=== PATIENT | male | born 1945 | race Caucasian/White ===

== ENCOUNTER 2020-05-29 10:31 | Inpatient (IN) | payer OTHER, SELFPAY ==
[~2020-05-29] VITALS: Ht 190.5 cm; Wt 126.1 kg
--- NOTE | 2020-05-29 10:31 | NUR ---
Patient MARY ALICEDb FAIZAN, triaged by RN. Waiting for an available bed.
[2020-05-29 11:11] VITALS: BP 107/47
--- NOTE | 2020-05-29 12:03 | NUR ---
Patient transferred to [facility] for further care.
--- NOTE | 2020-05-29 12:06 | NUR ---
75 y/o male biba als from home c/o vomiting coffee ground emesis x 1 day. Patient denies nausea/pain. Abd soft and non tender to palpation. Skin warm, dry, intact. AOx4 upon arrival. Given 4mg IV push zofran in route. 20G IV placed to right hand by ems. medhx: HTN, DM
--- NOTE | 2020-05-29 12:15 | NUR ---
Dr Solis at [facility] examining patient
[2020-05-29] MEDS ORDERED: NACL 0.9% 1,000 ML IV ONE ×2 (12:20→14:00)
[2020-05-29 12:53] LABS: BASOPHILS # (AUTO) 0.1 K/uL (0.00-0.22); BASOPHILS % (AUTO) 0.5 % (0.0-2.0); EOSINOPHILS # (AUTO) 0.1 K/uL (0-0.4); EOSINOPHILS % (AUTO) 0.6 % (0.0-4.0); HEMATOCRIT 24.8 % (36-52); HEMOGLOBIN 8.1 g/dL (12.0-18.0); LYMPHOCYTES # (AUTO) 1.4 K/uL (2.0-11.5); MEAN CORPUSCULAR HEMOGLOBIN 33 pg (27-31); MEAN CORPUSCULAR HGB CONC 33 g/dL (33-37); MEAN CORPUSCULAR VOLUME 101.4 fL (80-94); MONOCYTES # (AUTO) 1.1 K/uL (0.8-1.0); MONOCYTES % (AUTO) 9.4 % (1.7-9.3); NEUTROPHILS # (AUTO) 8.8 K/uL (1.8-7.7); NEUTROPHILS % (AUTO) 77.5 % (42.2-75.2); PLATELET COUNT (AUTO) 182 K/uL (140-450); RED BLOOD CELL COUNT(AUTO) 2.45 MIL/uL (4.20-6.10); RED CELL DISTRIBUTION WIDTH 15.5 % (11.6-13.7); WHITE BLOOD COUNT (AUTO) 11.3 K/uL (4.8-10.8)
--- NOTE | 2020-05-29 13:00 | NUR ---
Patient taken to CT via wheelchair
--- NOTE | 2020-05-29 13:10 | NUR ---
Covid swabs collected and walked to lab.
[2020-05-29 13:20] LABS: ALBUMIN 2.8 g/dL (3.4-5.0); ANION GAP 14.4 (8-16); ASPARTATE AMINOTRANSFERASE 18 U/L (15-37); CHLORIDE 105 mmol/L (98-107); CREATININE 1.5 mg/dL (0.6-1.3); POTASSIUM 4.4 mmol/L (3.5-5.1); SODIUM SERUM 140 mmol/L (136-145); TOTAL BILIRUBIN 0.3 mg/dL (0.0-1.0)
[2020-05-29 13:31] LABS: GLUCOSE 419 mg/dL (74-106); UREA NITROGEN, BLOOD 134 mg/dL (7-18)
--- NOTE | 2020-05-29 13:31 | NUR ---
Glucose 419, Calcium 7.9, BUN 134, Creatinine 1.5--critical values received from lab. Dr Solis made aware
--- NOTE | 2020-05-29 13:34 | NUR ---
Patient transferred to bed 5 for further care. RN evaluating patient at bedside.
--- NOTE | 2020-05-29 13:40 | NUR ---
PT PLACED ON 2L NC FOR 88% ON RA, DENIES SOB, LIGHTHEADEDNESS, OR CP
--- NOTE | 2020-05-29 13:52 | NUR ---
MAXIMILIANOD MADE CARLOS OF HYPOTENSION TRENDS, 76/37, 74/37. AWARE BOLUS IS STILL INFUSING. MADE AWARE THAT PTS ACCU CHECK IS 418
[2020-05-29] MEDS ORDERED: INSULIN REGULAR, HUMAN 100 UNIT/ML VIAL SUBQ ONE (14:00)
--- NOTE | 2020-05-29 15:00 | NUR ---
PT ASLEEP IN BED. EQUAL CHEST RISE AND FALL. COMPUTER FORENSICS TECHNICIAN IN PLACE. BED LOCKED AND IN LOWEST POSITION. SIDE RAILS X2.
[2020-05-29] MEDS: NACL 0.9% 1,000 ML IV SCH (15:45)
[2020-05-29] MEDS ORDERED: NIAC500T6 PO (16:04)
[2020-05-29] MEDS ORDERED: CARV12.5 PO (16:05)
[2020-05-29] MEDS ORDERED: FURO-570 PO (16:05)
[2020-05-29] MEDS ORDERED: POTA10TE30 PO (16:06)
[2020-05-29] MEDS ORDERED: ROSU10TA1 PO (16:06)
[2020-05-29] MEDS ORDERED: METF1TAB5 PO (16:07)
[2020-05-29] MEDS ORDERED: GLIP10TE PO (16:08)
[2020-05-29] MEDS ORDERED: LISI30TA6 PO (16:09)
[2020-05-29] MEDS ORDERED: TERA5CAP8 PO (16:09)
[2020-05-29] MEDS ORDERED: AMLO5TAB PO (16:10)
[2020-05-29] MEDS ORDERED: FLUO10CA21 PO (16:10)
[2020-05-29] MEDS ORDERED: FISH100053 PO (16:11)
[2020-05-29] MEDS ORDERED: INSU100S22 SUBQ (16:15)
[2020-05-29] MEDS ORDERED: ALEN70TA74 PO (16:15)
--- NOTE | 2020-05-29 16:56 | NUR ---
called lab to see if blood is ready for transfusion, stated to call back in 30 min
[2020-05-29] MEDS: SUCRALFATE 1 GM TAB PO SCH ×2 (17:22→22:46)
[2020-05-29] MEDS: LANSOPRAZOLE 30 MG CAPDR PO SCH (17:23)
[2020-05-29] MEDS: SENNA 8.6 MG TAB PO SCH (17:23)
--- NOTE | 2020-05-29 17:58 | NUR ---
The patient's , Charley Renee, may be reached via cell phone at [phone].
--- NOTE | 2020-05-29 18:00 | NUR ---
REPORT RECEIVED FROM FLAVIO PEÑA. ASSUMED CARE AT THIS TIME.
[2020-05-29] MEDS ORDERED: OCTREOTIDE ACETATE 1.25 MG in NACL 0.9% 250 ML IV SCH (19:00)
--- NOTE | 2020-05-29 19:15 | NUR ---
REPORT GIVEN TO FLAVIO ARNETT. ALL CARE TRANSFERRED.
--- NOTE | 2020-05-29 19:15 | NUR ---
RECEIVED REPORT FROM FLAVIO SETHI FOR CONTINUATION OF CARE. PT SLEEPING. VISIBLE RISE AND FALL OF CHEST NOTED. PT CONNECTED TO THE COOLER CONVEYOR LOADER. IV FLUIDS RUNNING PER MD ORDERS. BED IS LOCKED AND IN LOWEST POSITION. SIDE RAILSX1. NO VISIBLE DISTRESS NOTED. WILL CONTINUE TO MONITOR.
--- NOTE | 2020-05-29 19:40 | NUR ---
Consent signed per Cecil Renee (the patient) agreeing to administration of blood. Blood has been type and crossmatched. Information on unit of blood checked against patient wristband at bedside by two nurses. All information matches. Patient or responsible constitution party informed of potential complications associated with blood transfusion. Informed of possible transfusion reaction symptoms. Aware of need to notify nurse at once of itching, shortness of breath, flushing, feeling of impending doom, or other symptoms not previously present. Vital signs taken within 5 minutes prior to initiation of transfusion. RN will remain with patient for first 15 minutes of transfusion at which time vital signs will be re-assessed.
--- NOTE | 2020-05-29 21:25 | NUR ---
BLOOD TRANFUSION COMPLETE, PT TOLERATE WELL. PT IS RESTING ON HIS LEFT SIDE. VISIBLE RISE AND FALL OF CHEST NOTED. PT CONNECTED TO THE SIGNAL SYSTEM TESTING MAINTAINER. PT SAO2@98% ON 3L N/C. NO VISIBLE DISTRESS NOTED. PT DENIES PAIN. PT IS AFEBRILE. PT IS WITHIN VIEW OF NURSING STATION. IV FLUIDS RUNNING AT 100ML/HR PER MD ORDERS. WILL CONTINUE TO MONITOR FOR ADVERSE SIDE EFFECTS OF BLOOD TRANSFUSION.
[2020-05-29] MEDS ORDERED: DEXTROSE 50% 50 ML SYR IVP PRN (22:00)
[2020-05-29] MEDS ORDERED: ONDANSETRON 4 MG/2 ML VIAL IM/IVP PRN (22:00)
[2020-05-29] MEDS ORDERED: HYDROcodone/APAP 5/325 MG 1 TAB TAB PO PRN (22:00)
[2020-05-29] MEDS ORDERED: ZOLPIDEM 5 MG TAB PO PRN (22:00)
[2020-05-29] MEDS ORDERED: ACETAMINOPHEN 325 MG TAB PO PRN (22:00)
[2020-05-29] MEDS ORDERED: MAG SULF 2000 MG/WATER PREMIX 50 ML IV PRN (22:00)
[2020-05-29] MEDS ORDERED: MORPHINE SULFATE 2 MG/ML SYR IVP PRN (22:00)
[2020-05-29] MEDS ORDERED: LORazepam 2 MG/ML VIAL IM/IVP PRN (22:00)
[2020-05-29] MEDS ORDERED: POTASSIUM CHLORIDE 10 MEQ TABER PO PRN (22:00)
[2020-05-29] MEDS ORDERED: DOCUSATE SODIUM 100 MG GELCAP PO PRN (22:00)
--- NOTE | 2020-05-29 22:00 | NUR ---
PT PROVIDED WITH URINAL. CLEAN BED SHEETS AND GOWN PROVIDED DUE TO INCONTINENCE. PT TOLERATED SHAKILA CARE WELL.
[2020-05-29] MEDS: LACTULOSE 20 GM/30 ML UDC PO SCH (22:45)
[2020-05-29] MEDS ORDERED: METOCLOPRAMIDE 10 MG/2 ML INJ VIAL IVP ONE (23:00)
[2020-05-29 23:02] LABS: THYROID STIMULATING HORMONE 1.78 uIU/mL (0.34-3.74)
--- NOTE | 2020-05-29 23:30 | NUR ---
PT IS RESTING ON HIS RIGHT SIDE. VISIBLE RISE AND FALL OF CHEST NOTED. PT CONNECTED TO THE DAY HAUL YOUTH SUPERVISOR. PT SAO2@98% ON 3L N/C. NO VISIBLE DISTRESS NOTED. PT IS WITHIN VIEW OF NURSING STATION. IV FLUIDS RUNNING AT 100ML/HR PER MD ORDERS. WILL CONTINUE TO MONITOR FOR ADVERSE SIDE EFFECTS OF BLOOD TRANSFUSION.
--- NOTE | 2020-05-30 00:20 | NUR ---
PT HAS BLACK LIQUID DIARRHEA. NEW BED SHEETS PLACED ON BED. NEW GOWN PROVIDED.
--- NOTE | 2020-05-30 00:30 | NUR ---
PT AMBULATED TO RESTROOM WITH ASSISTANCE.
[2020-05-30] MEDS: NACL 0.9% 1,000 ML IV SCH ×2 (01:16→11:10)
--- NOTE | 2020-05-30 02:00 | NUR ---
PT IS SLEEPING. VISIBLE RISE AND FALL OF CHEST NOTED. PT CONNECTED TO THE CHUTE PULLER. PT SAO2@97% ON 3L N/C. NO VISIBLE DISTRESS NOTED. PT IS WITHIN VIEW OF NURSING STATION. IV FLUIDS RUNNING AT 100ML/HR PER MD ORDERS. WILL CONTINUE TO MONITOR.
--- NOTE | 2020-05-30 03:50 | NUR ---
PT PROVIDED WITH URINAL,
--- NOTE | 2020-05-30 04:03 | NUR ---
URINE SPECIMEN WALKED OVER TO LAB
--- NOTE | 2020-05-30 04:15 | NUR ---
CALLED FLAVIO BATISTA TO GIVE REPORT FOR TRANFER OF CARE AND ADMISSION TO TELEMETRY FLOOR.
--- NOTE | 2020-05-30 04:30 | NUR ---
Patient will be admitted to care of . Admited to TELEMETRY. Will go to room 110B. Belongings list completed. Report to FLAVIO BATISTA.
[2020-05-30 05:17] LABS: APPEARANCE,URINE CLEAR (CLEAR); BILIRUBIN,URINE NEGATIVE (NEGATIVE); BLOOD, URINE NEGATIVE (NEGATIVE); COLOR,URINE YELLOW (YELLOW); LEUKOCYTE ESTERASE ,URINE NEGATIVE (NEGATIVE); NITRITE, URINE NEGATIVE (NEGATIVE); PH,URINE 5.5 (5.0-9.0); UGLUCOSE 2+ (NEGATIVE)
[2020-05-30 05:44] LABS: BARBITURATE, URINE NEGATIVE ng/ml (NEG <=200); BENZODIAZEPINE, URINE NEGATIVE ng/mL (NEG <=200); CANNABINOID, URINE NEGATIVE ng/mL (NEG <=50); COCAINE, URINE NEGATIVE ng/mL (NEG <=300); OPIATE, URINE POSITIVE ng/mL (NEG <=2000); PHENCYCLIDINE SCREEN,URINE NEGATIVE ng/mL (NEG <=25)
[2020-05-30 05:45] VITALS: BP 122/60
--- NOTE | 2020-05-30 05:45 | NUR ---
RECEIVED PT FROM ER , AAOX4 , NID - O2 SAT WNL . IV SITE INTACT AND PATENT. AMBULATES W/ ASSIST TO BED . SAFETY MEASURES IN PLACE . PLAN OF CARE DISCUSSED AND VERBALIZE UNDERSTANDING . CALL LIGHT WITHIN REACH . ON TELE MONITOR . PT . IS FOR EGD - BUT NO CONSENT YET - NPO EXCEPTS MEDS RE EMPHASIZE . WILL CONT. TO MONITOR .
--- NOTE | 2020-05-30 07:02 | NUR ---
PATIENT HAS BEEN SCREENED AND CATEGORIZED MODERATE NUTRITION RISK. PATIENT WILL BE SEEN WITHIN 3-5 DAYS OF ADMISSION. 06/01/20 - 06/03/20 JLOENE HERMOSILLO MBA, RD
[2020-05-30 07:30] VITALS: BP 125/47
--- NOTE | 2020-05-30 07:35 | NUR ---
ENDORSED - PT - STABL E - I ENDORSED TO NURSE BILLY PT HAD LARGE BLACK STOOL WHEN HE WAS IN THE ER . I TOLD TO AM NURSE HE HAD TO FF UP THE LATEST HGB. . PT IS NOT YET SIGN THE CONSENT FOR EGD BEC. HE WANTS FURTHER EXPLAINATION FROM DR. GONZALES BEFORE HE SIGN IT .
--- NOTE | 2020-05-30 07:35 | NUR ---
RECEIVED PATIENT FROM NIGHT NURSE. PATIENT IN BED SLEEPING, CHEST NOTED RISING. RESP EVEN AND UNLABORED ON 3L NC. NO ACUTE S/S DISTRESS. RH 20G INFUSING NS 100ML/HR. HOB ELEVATED. CALL LIGHT WITHIN REACH. WILL CONTINUE TO MONITOR.
[2020-05-30] MEDS: BLOOD GLUCOSE MONITORING 1 DEV DEV FS SCH ×4 (07:52→21:01)
[2020-05-30] MEDS ORDERED: metFORMIN 500 MG TAB PO SCH (08:00)
[2020-05-30] MEDS ORDERED: NIACIN 500 MG TAB PO SCH (09:00)
[2020-05-30] MEDS ORDERED: glipiZIDE ER 5 MG TABER PO SCH (09:00)
[2020-05-30] MEDS: amLODIPine 5 MG TAB PO SCH (09:00)
[2020-05-30] MEDS ORDERED: POTASSIUM CHLORIDE 10 MEQ TABER PO SCH (09:00)
[2020-05-30] MEDS: lisinopriL 10 MG TAB PO SCH (09:00)
[2020-05-30] MEDS ORDERED: FUROSEMIDE 40 MG TAB PO SCH (09:00)
--- NOTE | 2020-05-30 10:05 | NUR ---
PATIENT SITTING BY BEDSIDE AWAKE AND ALERT, ORIENTED X3. RESP EVEN AND UNLABORED ON 3LNC, O2SAT 100%. NO NOTED ACUTE DISTRESS. NO IV ACCESS AT THIS TIME, PATIENT ACCIDENTALLY PULLED ON HIS IV SITE AND BECAME DISLODGED. WILL ATTEMPT TO INSERT ANOTHER IV. PATIENT COOPERATIVE DURING ADMISSION PROCESS. LUNGS CLEAR, SKIN WARM TO TOUCH AND INTACT WITH NOTED DISCOLORATION TO BOTH LOWER ABOVE ANKLES, INTACT SKIN. LISINOPRIL AND NORVASC HELD; BP 125/47 HR 94. PLAN OF CARE DISCUSSED, PATIENT VERBALIZED UNDERSTANDING. CALL LIGHT WITHIN REACH. WILL CONTINUE TO MONITOR.
[2020-05-30] MEDS: LACTULOSE 20 GM/30 ML UDC PO SCH ×3 (10:59→21:05)
[2020-05-30] MEDS: SUCRALFATE 1 GM TAB PO SCH ×4 (10:59→21:04)
[2020-05-30] MEDS: TAMSULOSIN 0.4 MG CAP PO SCH (10:59)
[2020-05-30] MEDS: carvediloL 12.5 MG TAB PO SCH ×2 (11:00→21:05)
[2020-05-30] MEDS: LANSOPRAZOLE 30 MG CAPDR PO SCH ×3 (11:02→16:59)
[2020-05-30] MEDS: FLUoxetine 10 MG CAP PO SCH (11:02)
[2020-05-30] MEDS: SENNA 8.6 MG TAB PO SCH ×3 (11:02→16:59)
[2020-05-30] MEDS ORDERED: fentaNYL citrate 0.05 MG/ML VIAL ONE (11:08)
[2020-05-30] MEDS ORDERED: MIDAZOLAM 5 MG/5 ML VIAL ONE (11:09)
--- NOTE | 2020-05-30 11:14 | NUR ---
SOCIAL WORK NOTE: SW WAS UNABLE TO MEET PATIENT AT BEDSIDE. SW CONTACTED PATIENT'S JEOVANNY SHAH [phone] BUT PHONE NUMBER WAS DISCONNECTED. SW CONTACTED RN BUT NO OTHER EMERGENCY CONTACTS WERE AVAILABLE. SW WILL FOLLOW UP TO COMPLETE ASSESSMENT.
--- NOTE | 2020-05-30 11:31 | NUR ---
PATIENT WENT TO OR FOR EGD. PATIENT LEFT IN STABLE CONDITION.
[2020-05-30 12:00] VITALS: BP 131/59
--- NOTE | 2020-05-30 12:45 | NUR ---
PATIENT CAME BACK FROM EGD, IN STABLE CONDITION. PATIENT DROWSY BUT ALERT. RESP EVEN AND UNLABORED ON 3LNC. NEW IV ACCESS INSERTED BY OR NURSE TO RW 22G. NO NOTED DISTRESS AT THIS TIME. VITALS ARE WNL. PATIENT ABLE TO MAKE NEEDS KNOWN. CALL LIGHT WITHIN REACH. WILL CONTINUE TO MONITOR.
[2020-05-30] MEDS ORDERED: fentaNYL citrate 0.05 MG/ML VIAL IVP ONE (13:15)
[2020-05-30] MEDS ORDERED: MIDAZOLAM 2 MG/2 ML VIAL IVP ONE (13:15)
[2020-05-30] MEDS: INSULIN LISPRO SLIDING SCALE 100 UNITS/ML VIAL SUBQ PRN ×3 (13:22→21:02)
--- NOTE | 2020-05-30 14:24 | NUR ---
PATIENT IN BED SLEEPING, CHEST NOTED RISING. NO ACUTE S/S DISTRESS AT THIS TIME. CALL LIGHT WITHIN REACH. WILL CONTINUE TO MONITOR.
[2020-05-30 14:33] LABS: BASOPHILS % (AUTO) 0.3 % (0.0-2.0); EOSINOPHILS # (AUTO) 0.1 K/uL (0-0.4); EOSINOPHILS % (AUTO) 1.1 % (0.0-4.0); LYMPHOCYTES # (AUTO) 0.7 K/uL (2.0-11.5); LYMPHOCYTES % (AUTO) 9.3 % (20.5-51.1); MEAN CORPUSCULAR HEMOGLOBIN 34 pg (27-31); MEAN CORPUSCULAR HGB CONC 33 g/dL (33-37); MEAN CORPUSCULAR VOLUME 100.1 fL (80-94); MONOCYTES # (AUTO) 0.8 K/uL (0.8-1.0); MONOCYTES % (AUTO) 10.2 % (1.7-9.3); NEUTROPHILS # (AUTO) 5.9 K/uL (1.8-7.7); NEUTROPHILS % (AUTO) 79.1 % (42.2-75.2); PLATELET COUNT (AUTO) 147 K/uL (140-450); RED BLOOD CELL COUNT(AUTO) 1.86 MIL/uL (4.20-6.10); RED CELL DISTRIBUTION WIDTH 16.8 % (11.6-13.7); WHITE BLOOD COUNT (AUTO) 7.5 K/uL (4.8-10.8)
[2020-05-30 14:38] LABS: HEMATOCRIT 18.7 % (36-52); HEMOGLOBIN 6.2 g/dL (12.0-18.0)
[2020-05-30 15:06] LABS: CARBON DIOXIDE 25.9 mmol/L (21-32); CHLORIDE 112 mmol/L (98-107); CREATININE 1.5 mg/dL (0.6-1.3); POTASSIUM 3.9 mmol/L (3.5-5.1); SODIUM SERUM 145 mmol/L (136-145)
[2020-05-30 15:08] LABS: CHOL/HDL RATIO 4.1 (1-4.5); MAGNESIUM 3.1 mg/dL (1.8-2.4); PHOSPHORUS 3.9 mg/dL (2.5-4.9)
[2020-05-30 15:12] LABS: GLUCOSE 463 mg/dL (74-106); UREA NITROGEN, BLOOD 109 mg/dL (7-18)
[2020-05-30 16:00] VITALS: BP 140/49
--- NOTE | 2020-05-30 17:38 | NUR ---
BLOOD SUGAR 383. INSULIN COVERAGE PER SLIDING SCALE. PATIENT ASSISTED FOR PERSONAL CARE. PATIENT TOLERATED WELL. RESP EVEN AND UNLABORED ON 3L NC. NO ACUTE S/S DISTRESS. IV TO RIGHT HAND INFILTRATED. NEW IV TO LEFT HAND 22 G USING ASEPTIC TECHNIQUE. CALL LIGHT WITHIN REACH. WILL CONTINUE TO MONITOR.
--- NOTE | 2020-05-30 19:16 | NUR ---
BLOOD TRANSFUSION STARTED. PATIENT IN BED AWAKE AND ALERT. NO NOTED ACUTE S/S DISTRESS. VITALS WNL. CALL LIGHT WITHIN REACH. WILL CONTINUE TO MONITOR.
--- NOTE | 2020-05-30 19:30 | NUR ---
BLOOD TRANSFUSION IN PROGRESS. ENDORSED PATIENT TO NIGHT NURSE. PATIENT IN STABLE CONDITION.
--- NOTE | 2020-05-30 19:31 | NUR ---
RECEIVED BEDSIDE ENDORSEMENT FROM AM SHIFT RN. AOX4, NO SOB, ON 3 L NC, NO DISTRESS, ISO PRECAUTION IN PLACE, SAFETY MEASURES IN PLACE, PLAN OF CARE DISCUSSED, CALL LIGHT WITHIN REACH.
[2020-05-30 20:00] VITALS: BP 133/86
[2020-05-30] MEDS: GLIMEPIRIDE 2 MG TAB PO SCH (21:04)
[2020-05-30] MEDS: SIMVASTATIN 10 MG TAB PO SCH (21:06)
--- NOTE | 2020-05-30 22:00 | NUR ---
BLOOD TRANSFUSION FINISHED, VITAL SIGNS MONITORED, DURING THE TRANSFUSION, NO A/R NOTED, NO S/E NOTED, PT STABLE, WILL CONTINUE TO MONITOR. CALL LIGHT WITHIN REACH.
[2020-05-30] MEDS ORDERED: INSULIN LANTUS 100 UNITS/ML 10 ML VIAL SUBQ SCH (22:14)
[2020-05-31] VITALS: BP 146/62
[2020-05-31] MEDS: NACL 0.9% 1,000 ML IV SCH ×2 (03:00→15:40)
[2020-05-31 04:00] VITALS: BP 139/60
[2020-05-31] MEDS: LANSOPRAZOLE 30 MG CAPDR PO SCH ×2 (06:46→16:30)
[2020-05-31] MEDS: BLOOD GLUCOSE MONITORING 1 DEV DEV FS SCH ×3 (06:50→16:30)
[2020-05-31] MEDS: INSULIN LISPRO SLIDING SCALE 100 UNITS/ML VIAL SUBQ PRN ×3 (06:51→18:39)
--- NOTE | 2020-05-31 06:56 | NUR ---
HOB ELEVATED, DUE MEDS GIVEN ORDERED, TOLERATED WELL, KEPT COMFORTABLE, CALL LIGHT WITHIN REACH, NO SOB.
--- NOTE | 2020-05-31 07:24 | NUR ---
PT STABLE, NO ACUTE CHANGES THE WHOLE SHIFT, ENDORSED TO AM SHIFT RN.
--- NOTE | 2020-05-31 07:25 | NUR ---
REC'D REPORT FROM VENEER SORTER NURSE, 3LNC, IV ACCESS L. HAND 22 NS @60ML/HR. STABLE
--- NOTE | 2020-05-31 07:32 | NUR ---
[facility]NS REFERRAL RECEIVED ON 05/31/20 FOR UNKNOWN REASONS. PER RN I/A N/A NUTRITIONAL HX, 0 PTS TRIGGER DIETITIAN REFERRAL. RD REVIEWED PT CHART AGAIN ON 05/31/20 (BS, DIET ORDER, LABS, H&P, ...). PATIENT CONTINUES TO BE CATEGORIZED MODERATE NUTRITION RISK. PATIENT WILL BE SEEN WITHIN 3-5 DAYS OF ADMISSION. 06/01/20 - 06/03/20 JOLENE HERMOSILLO MBA, RD
[2020-05-31 08:00] VITALS: BP 144/75
[2020-05-31] MEDS ORDERED: FERROUS SULFATE 325 MG TABEC PO SCH ×2 (08:00→12:15)
[2020-05-31] MEDS: LACTULOSE 20 GM/30 ML UDC PO SCH ×2 (08:36→23:01)
[2020-05-31] MEDS: lisinopriL 10 MG TAB PO SCH (08:36)
[2020-05-31] MEDS: FLUoxetine 10 MG CAP PO SCH (08:36)
[2020-05-31] MEDS: SUCRALFATE 1 GM TAB PO SCH ×4 (08:38→23:01)
[2020-05-31] MEDS: TAMSULOSIN 0.4 MG CAP PO SCH (08:38)
[2020-05-31] MEDS: GLIMEPIRIDE 2 MG TAB PO SCH (08:38)
[2020-05-31] MEDS: carvediloL 12.5 MG TAB PO SCH ×2 (08:39→23:03)
[2020-05-31] MEDS: amLODIPine 5 MG TAB PO SCH (08:40)
[2020-05-31] MEDS: SENNA 8.6 MG TAB PO SCH ×3 (08:41→17:00)
[2020-05-31 09:00] LABS: BASOPHILS % (AUTO) 0.3 % (0.0-2.0); EOSINOPHILS # (AUTO) 0.4 K/uL (0-0.4); EOSINOPHILS % (AUTO) 4.4 % (0.0-4.0); LYMPHOCYTES # (AUTO) 1.2 K/uL (2.0-11.5); LYMPHOCYTES % (AUTO) 12.7 % (20.5-51.1); MEAN CORPUSCULAR HEMOGLOBIN 34 pg (27-31); MEAN CORPUSCULAR HGB CONC 34 g/dL (33-37); MEAN CORPUSCULAR VOLUME 99.6 fL (80-94); MONOCYTES % (AUTO) 11.3 % (1.7-9.3); NEUTROPHILS # (AUTO) 6.6 K/uL (1.8-7.7); NEUTROPHILS % (AUTO) 71.3 % (42.2-75.2); PLATELET COUNT (AUTO) 142 K/uL (140-450); RED BLOOD CELL COUNT(AUTO) 1.96 MIL/uL (4.20-6.10); RED CELL DISTRIBUTION WIDTH 16.3 % (11.6-13.7); WHITE BLOOD COUNT (AUTO) 9.2 K/uL (4.8-10.8)
--- NOTE | 2020-05-31 09:05 | NUR ---
ADMINISTERED MEDICATIONS PER MD ORDER, PT TOLERATED PROCEDURE WELL. CAN SWALLOW PO MEDS INTACT, REQUIRES ASSISTANCE TO HAND ITEMS. PT STABLE, 3L NC
[2020-05-31 09:17] LABS: HEMATOCRIT 19.5 % (36-52); HEMOGLOBIN 6.6 g/dL (12.0-18.0)
[2020-05-31 09:27] LABS: ANION GAP 8.8 (8-16); CARBON DIOXIDE 27.7 mmol/L (21-32); CHLORIDE 115 mmol/L (98-107); CREATININE 1.1 mg/dL (0.6-1.3); GLUCOSE 259 mg/dL (74-106); POTASSIUM 3.5 mmol/L (3.5-5.1); SODIUM SERUM 148 mmol/L (136-145)
[2020-05-31 09:50] LABS: MAGNESIUM 2.6 mg/dL (1.8-2.4); PHOSPHORUS 3.3 mg/dL (2.5-4.9)
[2020-05-31 10:36] LABS: UREA NITROGEN, BLOOD 71 mg/dL (7-18)
[2020-05-31 12:00] VITALS: BP 138/69
[2020-05-31] MEDS ORDERED: POTASSIUM CHLORIDE 20% 40 MEQ/15 ML UDC GT SCH (12:15)
--- NOTE | 2020-05-31 13:08 | NUR ---
FINGER BLOOD GLUCOSE LEVEL 224, ADMINISTERED 4UNIT HUMALOG, ADMINISTERED PO MEDS ORDERED BY . PT TOLERATED PROCEDURE WELL.
--- NOTE | 2020-05-31 14:52 | NUR ---
SPOKE TO BLOOD BANK, UNIT OF PCRB NOT READY FOR ADMINISTRATION YET
[2020-05-31 16:00] VITALS: BP 138/68
[2020-05-31] MEDS ORDERED: INSULIN LANTUS 100 UNITS/ML 10 ML VIAL SUBQ SCH (21:00)
[2020-05-31] MEDS: SIMVASTATIN 10 MG TAB PO SCH (23:02)
[2020-05-31] MEDS: FERROUS SULFATE 325 MG TABEC PO SCH (23:02)
[2020-06-01] MEDS: BLOOD GLUCOSE MONITORING 1 DEV DEV FS SCH ×4 (01:10→17:14)
[2020-06-01] MEDS: GLIMEPIRIDE 2 MG TAB PO SCH ×2 (01:10→10:26)
--- NOTE | 2020-06-01 06:08 | NUR ---
#1 PRBC FOR THIS SHIFT STARTED AT 0525. 0505 T96.9,74,18,92%, 122/62 AND NO PAIN 0540 T97, 76,17,92%,122/62, AND NO PAIN 0555 T97.2,68,17,100%,112/61,AND NO PAIN THUS FAR, NO S/SX OF TRX REACTION.
--- NOTE | 2020-06-01 07:35 | NUR ---
RECEIVED PATIENT FROM NIGHT NURSE. PATIENT IN BED AWAKE AND ALERT. PACKED CELLS INFUSING AT THIS TIME TO RH 22G. RESP EVEN AND UNLABORED. DENIED OF PAIN. ABLE TO MAKE NEEDS KNOWN. PLAN OF CARE DISCUSSED, PATIENT VERBALIZED UNDERSTANDING. SAFETY MEASURES IN PLACE. CALL LIGHT WITHIN REACH. WILL CONTINUE TO MONITOR
[2020-06-01 08:00] VITALS: BP 138/67
--- NOTE | 2020-06-01 09:25 | NUR ---
BLOOD TRANSFUSION COMPLETE. NO NOTED ASE. PATIENT ALERT AND ABLE TO MAKE NEEDS KNOWN. CALL LIGHT WITHIN REACH. WILL CONTINUE TO MONITOR.
[2020-06-01] MEDS: FERROUS SULFATE 325 MG TABEC PO SCH (10:24)
[2020-06-01] MEDS: LACTULOSE 20 GM/30 ML UDC PO SCH (10:24)
[2020-06-01] MEDS: amLODIPine 5 MG TAB PO SCH (10:24)
[2020-06-01] MEDS: TAMSULOSIN 0.4 MG CAP PO SCH (10:24)
[2020-06-01] MEDS: LANSOPRAZOLE 30 MG CAPDR PO SCH ×2 (10:25→17:09)
--- NOTE | 2020-06-01 10:25 | NUR ---
PATIENT SITTING UP IN BED AWAKE AND ALERT. MORNING ROUTINE MEDICATIONS GIVEN. PATIENT TOLERATED WELL. RESP EVEN AND UNLABORED ON 4LNC, O2SAT 93%. DENIED OF PAIN AT THIS TIME. RH22G INTACT AND PATENT. PLAN OF CARE DISCUSSED WITH PATIENT. PATIENT VERBALIZED UNDERSTANDING. CALL LIGHT WITHIN REACH. WILL CONTINUE TO MONITOR.
[2020-06-01] MEDS: lisinopriL 10 MG TAB PO SCH (10:26)
[2020-06-01] MEDS: carvediloL 12.5 MG TAB PO SCH (10:26)
[2020-06-01] MEDS: FLUoxetine 10 MG CAP PO SCH (10:26)
[2020-06-01] MEDS: SENNA 8.6 MG TAB PO SCH ×3 (10:26→17:09)
[2020-06-01] MEDS: NACL 0.9% 1,000 ML IV SCH (10:27)
[2020-06-01] MEDS: SUCRALFATE 1 GM TAB PO SCH ×3 (10:27→17:09)
[2020-06-01] MEDS: INSULIN LISPRO SLIDING SCALE 100 UNITS/ML VIAL SUBQ PRN (10:42)
[2020-06-01 12:00] VITALS: BP 157/77
--- NOTE | 2020-06-01 12:15 | NUR ---
DC PLASTER AND STUCCO WORKER: RECEIVED ORDER FOR HOME SAFETY BALBIR. CALLED PATIENTS CELL PHONE [phone] TO DISCUSS HOME HEALTH. HE STATED THAT IT IS SOMETHING THAT HE WANTS BUT DOES NOT HAVE ANY PREFERENCE IN HOME HEALTH. HE ASKED THAT I CALL HIS . CALLED PATIENTS ADEEL SHAH [phone] TO DISCUSS HOME HEALTH, SHE DOES NOT HAVE A PREFERENCE EITHER, HOWEVER SHE DID HAVE A CONCERN IN TRANSPORTATION WHEN PATIENT IS READY FOR DC. SHE STATED THAT SHE CAN NOT HELP PICK HIM UP DUE TO PATIENT NOT BEING ABLE TO AMBULATE WELL. SHE STATED THAT HER IS VERY TALL AND SHE IS NOT STRONG ENOUGH TO HELP HIM INTO THE HOME. Addendum: 06/01/20 at 1225 by Caroline Thomas CM SHAHID PACHECO FAXED REFERRAL TO [facility] [phone] WILL FOLLOW UP. Addendum: 06/01/20 at 1350 by Caroline Thomas CM DC PLASTER AND STUCCO WORKER: RECEIVED A CALL FROM LUÍS AT [facility]. THEY ARE ABLE TO ACCEPT THIS PATIENT. Addendum: 06/01/20 at 1543 by Caroline Thomas CM DC PLASTER AND STUCCO WORKER: NOTIFIED PATIENTS AND FLAVIO SORIA THAT [facility] IS ABLE TO ACCEPT THIS PATIENT. CONTACTED [facility] [phone] TO SEE HOW MUCH IT WOULD COST FOR TRANSPORTATION IT WOULD BE $150.00. PATIENTS IS NOT WILLING TO PAY FOR TRANSPORTATION. Addendum: 06/01/20 at 1648 by Candi Milian RN DC PLANNING: PER DR MINA PT STATED WILLING TO PAY FOR TRANSPORT WILL CONTACT [facility] TO FOLLOW Addendum: 06/01/20 at 1709 by Caroline Thomas CM SHAHID PACHECO: TRANSPORTATION HAS BEEN SET UP WITH [facility] PATIENTS WILL HAVE A CHECK READY FOR THE IT DATA ARCHITECT WHEN THEY ARRIVE. NOTIFIED FLAVIO RIZZO UP TIME IS 6:00 PM Addendum: 06/01/20 at 1710 by Caroline Thomas CM SHAHID PACHECO: [facility] [phone].
--- NOTE | 2020-06-01 12:35 | NUR ---
PATIENT IN BED AWAKE AND ALERT., NO NOTED DISTRESS. CHEST NOTED RISING. NO BLOOD SUGAR CHECK D/T RECENT CHECK AT 1100 WITH COVERAGE. PATIENT VERBALIZED UNDERSTANDING. CALL LIGHT WITHIN REACH. WILL CONTINUE TO MONITOR.
[2020-06-01 14:09] LABS: BASOPHILS % (AUTO) 0.3 % (0.0-2.0); EOSINOPHILS # (AUTO) 0.4 K/uL (0-0.4); EOSINOPHILS % (AUTO) 5.9 % (0.0-4.0); HEMATOCRIT 21.4 % (36-52); LYMPHOCYTES # (AUTO) 0.9 K/uL (2.0-11.5); LYMPHOCYTES % (AUTO) 13.2 % (20.5-51.1); MEAN CORPUSCULAR HEMOGLOBIN 33 pg (27-31); MEAN CORPUSCULAR HGB CONC 33 g/dL (33-37); MEAN CORPUSCULAR VOLUME 99.2 fL (80-94); MONOCYTES # (AUTO) 0.8 K/uL (0.8-1.0); MONOCYTES % (AUTO) 12.5 % (1.7-9.3); NEUTROPHILS # (AUTO) 4.4 K/uL (1.8-7.7); NEUTROPHILS % (AUTO) 68.1 % (42.2-75.2); PLATELET COUNT (AUTO) 137 K/uL (140-450); RED BLOOD CELL COUNT(AUTO) 2.15 MIL/uL (4.20-6.10); WHITE BLOOD COUNT (AUTO) 6.5 K/uL (4.8-10.8)
[2020-06-01 14:22] LABS: ANION GAP 4.5 (8-16); CARBON DIOXIDE 30.9 mmol/L (21-32); CHLORIDE 112 mmol/L (98-107); CREATININE 0.9 mg/dL (0.6-1.3); GLUCOSE 189 mg/dL (74-106); POTASSIUM 3.4 mmol/L (3.5-5.1); SODIUM SERUM 144 mmol/L (136-145); UREA NITROGEN, BLOOD 31 mg/dL (7-18)
[2020-06-01 14:26] LABS: MAGNESIUM 2.4 mg/dL (1.8-2.4); PHOSPHORUS 2.8 mg/dL (2.5-4.9)
[2020-06-01 16:00] VITALS: BP 144/69
[2020-06-01] MEDS ORDERED: SUCR1TAB56 PO (16:21)
[2020-06-01] MEDS ORDERED: LACT10SO11 PO (16:21)
[2020-06-01] MEDS ORDERED: LANS30EC68 PO (16:21)
--- NOTE | 2020-06-01 17:07 | NUR ---
P.T. NOTES P.T. EVAL COMPLETED; REFER TO EVAL FOR DETAILS.
--- NOTE | 2020-06-01 17:14 | NUR ---
BLOOD SUGAR 130. NO COVERAGE NEEDED. DISCHARGE PAPERWORK IN PROGRESS. PATIENT VERBALIZED UNDERSTANDING. [facility]SP[facility] PRINCIPAL JAVA DEVELOPER ETA 1800. WILL CONTINUE TO MONITOR.
[2020-06-01 17:54] VITALS: BP 144/69
--- NOTE | 2020-06-01 18:43 | NUR ---
PATIENT LEFT WITH [facility]SPORT WITH ALL PERSONAL BELONGINGS. DISCHARGE INSTRUCTIONS GIVEN. PATIENT VERBALIZED UNDERSTANDING. VACCINES UP TO DATE.
== END 2020-06-01 18:40 | disposition home or self-care (01) | DRG 377 ==
LOC: MED 10:31 → MTU 19:50
PROC: 30233N1 Transfusion of Nonautologous Red Blood Cells into Peripheral Vein, Percutaneous Approach (ICD-10-PCS; 2020-05-29)
PROC: 0W3P8ZZ Control Bleeding in Gastrointestinal Tract, Via Natural or Artificial Opening Endoscopic (ICD-10-PCS; 2020-05-30)
PROC: 0DB98ZX Excision of Duodenum, Via Natural or Artificial Opening Endoscopic, Diagnostic (ICD-10-PCS; principal; 2020-05-30 08:30)
PROC: 0DB68ZX Excision of Stomach, Via Natural or Artificial Opening Endoscopic, Diagnostic (ICD-10-PCS; 2020-05-30 08:30)
DX: K25.4 Chronic or unspecified gastric ulcer with hemorrhage (principal); N17.0 Acute kidney failure with tubular necrosis; I21.A1 Myocardial infarction type 2; E44.0 Moderate protein-calorie malnutrition; H33.8 Other retinal detachments; E78.5 Hyperlipidemia, unspecified; I10 Essential (primary) hypertension; M19.90 Unspecified osteoarthritis, unspecified site; Z20.822 Contact with and (suspected) exposure to COVID-19; E11.65 Type 2 diabetes mellitus with hyperglycemia; D53.9 Nutritional anemia, unspecified; E66.9 Obesity, unspecified; K31.7 Polyp of stomach and duodenum; E83.41 Hypermagnesemia; I45.10 Unspecified right bundle-branch block; R00.0 Tachycardia, unspecified; Z68.34 Body mass index [BMI] 34.0-34.9, adult
CPT/HCPCS: 36415; 36430; 71045; 80048; 80053; 80305; 81003; 82150; 82948; 83036; 83690; 83735; 83880; 84100; 84134; 84443; 84484; 85018; 85025; 85610; 85730; 86677; 86886; 86900; 86901; 86920; 88305; 93005; 96360; 96361; 96372; 97112; 99291; J1815; J2250; J2765; J3010; J7030; P9016; U0003